=== PATIENT | female | born 1965 | race Caucasian/White ===

== ENCOUNTER 2017-01-06 11:47 | Emergency (ER) | payer OTHER ==
[~2017-01-06] VITALS: Ht 152.4 cm; Wt 66.5 kg
[~2017-01-06 11:47] MED LIST: GLIP5TAB13 PO; METF-382 PO; NAPR-260 PO
[2017-01-06 11:52] VITALS: Ht 152.4 cm; Wt 66.5 kg
[2017-01-06 13:34] LABS: URINE BLOOD (Dip) POC 2+ (NEGATIVE)
[2017-01-06] MEDS ORDERED: CEPH-443 PO (14:35)
[2017-01-06] MEDS ORDERED: ACET325T33 PO (14:35)
--- NOTE | 2017-01-06 14:47 | ERD ---
ER Documentation Chief Complaint Date/Time DATE: 01/06/17 TIME: 14:43 Chief Complaint dysuria and suprapubic pain x 3 days HPI 51-year-old female with a past medical history of diabetes presents to the ED complaining of dysuria, suprapubic pain that started 3 days ago. Denies any abdominal pain, nausea, vomiting, chest pain, shortness of breath, wheezing, headache, weakness, numbness or tingling. Reports that she takes metformin for her diabetes. ROS All systems reviewed and are negative except as per history of present illness. Medications Home Meds Active Scripts Acetaminophen* (Tylenol*) 325 Mg Tablet, 1 TAB PO Q6 Y for PAIN AND OR ELEVATED TEMP, #20 TAB Prov:ANNA YATES PA-C 01/06/17 Cephalexin* (Keflex*) 500 Mg Capsule, 500 MG PO QID for 7 Days, CAP Prov:ANNA YATES PA-C 01/06/17 Naproxen* (Naprosyn*) 500 Mg Tablet, 500 MG PO BID Y for PAIN AND/OR INFLAMMATION, #30 TAB Prov:JOSE MANUEL BOWERS 04/02/16 Reported Medications Glipizide* (Glipizide*) Unknown Strength Tablet, MG PO AC BREAKFAST, TAB 04/02/16 Metformin Hcl* (Metformin Hcl*) 500 Mg Tablet, 500 MG PO WITH BREAKFAST DINNE, # 30 TAB 04/02/16 Allergies Allergies: Coded Allergies: No Known Allergy (Unverified , 01/06/17) PMhx/Soc Medical and Surgical Hx: pt denies Surgical Hx History of Surgery: No Anesthesia Reaction: No Hx Neurological Disorder: No Hx Respiratory Disorders: No Hx Psychiatric Problems: No Hx Miscellaneous Medical Probl: Yes (DM) Hx Alcohol Use: No Hx Substance Use: No Hx Tobacco Use: No Smoking Status: Never smoker Physical Exam Vitals Vital Signs Date Time Temp Pulse Resp B/P Pulse Ox O2 Delivery O2 Flow Rate FiO2 01/06/17 11:52 99.1 90 18 138/82 96 Physical Exam Const: [id number], well-nourished. In no acute distress. Head: Atraumatic, normocephalic Eyes: Normal Conjunctiva without injection. No purulent discharge. ENT: Normal external ear, nose. Moist oropharynx without tonsillar exudates. Non -erythematous pharynx. Uvula midline. No drooling. No trismus. Neck: No cervical midline tenderness. Full range of motion. No meningismus. No cervical lymphadenopathy. No JVD. Resp: Clear to auscultation bilaterally. No wheezing, rhonchi, rales, or crackles. No accessory muscle use. No retractions. Cardio: Regular rate and rhythm. No murmurs, rubs or gallops. Abd: Soft, nontender, non distended. Normal bowel sounds. No palpable masses. No rebound tenderness. No guarding. Negative McBurney's point. Negative psoas sign. Negative obturator sign. Skin: No petechiae or rashes Back: No midline tenderness. No CVA tenderness. Ext: No cyanosis, or edema. Neur: Awake and alert. Normal gait. Normal coordination. Psych: Normal Mood and Affect Results 24 hrs Laboratory Tests Test 01/06/17 13:33 Bedside Urine Blood 2+ Bedside Urine Glucose (UA) 0.50% Bedside Urine Ketones (LAB) Negative Bedside Urine Leukocyte Esterase (L 3+ Bedside Urine Nitrite (LAB) Negative Bedside Urine Protein (LAB) 2+ Bedside Urine pH (LAB) 7.5 Procedures/MDM This is a 51-year-old female with a past medical history of dysuria,, suprapubic pain that started 3 days ago. Patient is afebrile and nontoxic- appearing. Patient has normal vital signs. Urine dip showed 3+ leukocyte esterase, 0.5% glucose, 2+ hematuria. Patient likely has a urinary tract infection. There is no ketones noted. There is low suspicion for DKA, HHS, acute abdomen, acute myocardial infarction, pneumothorax, pneumonia, cardiac tamponade, pulmonary embolism, pleural effusion, AAA, aortic dissection, Boerhaave's syndrome, cardiac dysrhythmias,meningitis, intracranial bleed, seizure, stroke, TIA or other emergent conditions. Gastritis, GERD, peptic ulcer disease, cholecystitis, choledocholithiasis, cholangitis, pancreatitis, appendicitis, bowel obstruction, ileus, volvulus, nephrolithiasis, pyelonephritis, hepatitis, perforated viscus, diverticulitis, abdominal hernia, acute abdomen, mesenteric ischemia or other emergent conditions. 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 Instructed patient to return to the ED sooner for any worsening symptoms. Patient's questions were answered. Patient understood and agreed with discharge plan. Patient discharged stable. Departure Diagnosis: Primary Impression: Dysuria Condition: Stable Patient Instructions: Dysuria, Urinary Tract Infections in Women Referrals: JULIA MAYS (PCP) [facility] YOU HAVE RECEIVED A MEDICAL SCREENING EXAM AND THE RESULTS INDICATE THAT YOU DO NOT HAVE A CONDITION THAT REQUIRES URGENT TREATMENT IN THE EMERGENCY DEPARTMENT. FURTHER EVALUATION AND TREATMENT OF YOUR CONDITION CAN WAIT UNTIL YOU ARE SEEN IN YOUR DOCTORS OFFICE WITHIN THE NEXT 1-2 DAYS. IT IS YOUR RESPONSIBILITY TO MAKE AN APPOINTMENT FOR FOLOW-UP CARE. IF YOU HAVE A PRIMARY DOCTOR --you should call your primary doctor and schedule an appointment IF YOU DO NOT HAVE A PRIMARY DOCTOR YOU CAN CALL OUR PHYSICIAN REFERRAL HOTLINE AT IF YOU CAN NOT AFFORD TO SEE A PHYSICIAN YOU CAN CHOSE FROM THE FOLLOWING [facility] [address] [facility] [address] [facility] [address] [facility] [address] [facility] [address] [facility] [facility]. [address] [facility] [facility] YOU HAVE RECEIVED A MEDICAL SCREENING EXAM AND THE RESULTS INDICATE THAT YOU DO NOT HAVE A CONDITION THAT REQUIRES URGENT TREATMENT IN THE EMERGENCY DEPARTMENT. FURTHER EVALUATION AND TREATMENT OF YOUR CONDITION CAN WAIT UNTIL YOU ARE SEEN IN YOUR DOCTORS OFFICE WITHIN THE NEXT 1-2 DAYS. IT IS YOUR RESPONSIBILITY TO MAKE AN APPOINTMENT FOR FOLOW-UP CARE. IF YOU HAVE A PRIMARY DOCTOR --you should call your primary doctor and schedule and appointment IF YOU DO NOT HAVE A PRIMARY DOCTOR YOU CAN CALL OUR PHYSICIAN REFERRAL HOTLINE AT . IF YOU CAN NOT AFFORD TO SEE A PHYSICIAN YOU CAN CHOSE FROM THE FOLLOWING [facility] INSTITUTIONS: [facility] [address] [place] [address] [facility] [address] [place] [address] [facility] [address] [place] [address] [facility] URGENT CARE/SPECIALTIES Additional Instructions: Visite a valadez patricia dumont para un EXAMEN.Regrese a estas instalaciones si no se mejora ebenezer esperbamos o ebenezer le dijimos. ANNA YATES PA-C Jan 06, 2017 14:46
== END 2017-01-06 14:57 | disposition home or self-care (01) ==
LOC: FTE 11:47
DX: R30.0 Dysuria (principal); E11.9 Type 2 diabetes mellitus without complications; I10 Essential (primary) hypertension; Z79.84 Long term (current) use of oral hypoglycemic drugs
CPT/HCPCS: 81003; 99283

== ENCOUNTER 2017-06-26 19:19 | Emergency (ER) | payer OTHER ==
[~2017-06-26] VITALS: Ht 162.6 cm; Wt 69.0 kg
[~2017-06-26 19:19] MED LIST changes: +ACET325T33 PO; +CEPH-443 PO; -METF-382 PO; +METF500T4 PO
[2017-06-26 19:33] VITALS: Ht 162.6 cm; Wt 69.0 kg
[2017-06-26] MEDS ORDERED: HYDR26CR PR (22:20)
[2017-06-26] MEDS ORDERED: HDRP454O TOP (22:20)
[2017-06-26] MEDS ORDERED: NAPR-260 PO (22:20)
[2017-06-26 22:35] VITALS: BP 112/77; PULSE 81; RESP 16; TEMP 98.3
--- NOTE | 2017-06-27 00:02 | ERD ---
ER Documentation Chief Complaint Date/Time DATE: 06/26/17 TIME: 23:53 Chief Complaint rectal pain w/ redness HPI 51-year-old female coming in complaining of rectal pain 2 months. Patient denies fever. Denies blood in her stool. Has not used medications on the site. States that the site feels itchy and painful. Denies any fevers. Denies purulence. Denies abdominal pain. Denies changes in urination or bowel movements. ROS All systems reviewed and are negative except as per history of present illness. Medications Home Meds Active Scripts Hydrophilic Base* (Aquaphor*) 454 Gm-Topical Oint, 1 APPLIC TOP BID, #1 JAR Prov:DARIO HUERTA PA-C 06/26/17 Hydrocortisone* Rectal (Preparation H* Cream) 1% - 26 Gm Cream.gm., 1 APPLIC IL BID, #1 TUB Prov:DARIO HUERTA PA-C 06/26/17 Naproxen* (Naprosyn*) 500 Mg Tablet, 500 MG PO BID Y for PAIN AND/OR INFLAMMATION, #30 TAB Prov:DARIO HUERTA PA-C 06/26/17 Acetaminophen* (Tylenol*) 325 Mg Tablet, 1 TAB PO Q6 Y for PAIN AND OR ELEVATED TEMP, #20 TAB Prov:ANNA YATES PA-C 01/06/17 Cephalexin* (Keflex*) 500 Mg Capsule, 500 MG PO QID for 7 Days, CAP Prov:ANNA YATES PA-C 01/06/17 Naproxen* (Naprosyn*) 500 Mg Tablet, 500 MG PO BID Y for PAIN AND/OR INFLAMMATION, #30 TAB Prov:JOSE MANUEL BOWERS 04/02/16 Reported Medications Glipizide* (Glipizide*) Unknown Strength Tablet, MG PO AC BREAKFAST, TAB 04/02/16 Metformin Hcl* (Metformin Hcl*) 500 Mg Tablet, 500 MG PO WITH BREAKFAST DINNE, # 30 TAB 04/02/16 Allergies Allergies: Coded Allergies: No Known Allergy (Unverified , 01/06/17) PMhx/Soc History of Surgery: No Anesthesia Reaction: No Hx Neurological Disorder: No Hx Respiratory Disorders: No Hx Psychiatric Problems: No Hx Miscellaneous Medical Probl: Yes (DM) Hx Alcohol Use: No Hx Substance Use: No Hx Tobacco Use: No Smoking Status: Never smoker Physical Exam Vitals Vital Signs Date Time Temp Pulse Resp B/P Pulse Ox O2 Delivery O2 Flow Rate FiO2 06/26/17 22:35 98.3 81 16 112/77 Room Air 06/26/17 19:33 98.9 75 20 141/75 98 Physical Exam GENERAL: The patient is well-appearing, well-nourished, in no acute distress CHEST: Clear to auscultation bilaterally. There are no rales, wheezes or rhonchi. HEART: Regular rate and rhythm. No murmurs, clicks, rubs or gallops. No S3 or S4. ABDOMEN:Soft, nontender and nondistended. Good bowel sounds. No rebound or guarding. No gross peritonitis. No gross organomegaly or masses. No Miller sign or McBurney point tenderness. BACK: No midline or flank tenderness. SKIN: There is no apparent rash or petechiae. The skin is warm and dry. RECTUM: Hemorrhoids skin tags. No thrombosed hemorrhoids seen. No surrounding erythema. No fluctuance to palpation. No erythema or induration. Procedures/MDM MDM: 51-year-old female coming in complaining of rectal pain. I have low suspicion for perirectal or rectal abscess. Patient's vital signs are stable and patient's exam is not concerning. I have low suspicion for thrombosed hemorrhoid. I have low suspicion for fungal infection. Patient will be given medication recommended to follow-up with primary care within 1-2 days for close evaluation. Patient understood and complied with plan. Departure Diagnosis: Primary Impression: Hemorrhoid Condition: Stable Patient Instructions: Hemorrhoids Additional Instructions: FOLLOW UP WITH YOUR PRIMARY CARE PHYSICIAN TOMORROW.Return to this facility if you are not improving as expected. DARIO HUERTA PA-C Jun 27, 2017 00:02
== END 2017-06-26 22:40 | disposition home or self-care (01) ==
LOC: FTE 19:19
DX: K64.4 Residual hemorrhoidal skin tags (principal); E11.9 Type 2 diabetes mellitus without complications; Z79.84 Long term (current) use of oral hypoglycemic drugs
CPT/HCPCS: 99284

== ENCOUNTER 2017-08-17 17:38 | Emergency (ER) | payer SELFPAY ==
[~2017-08-17 17:38] MED LIST changes: +HDRP454O TOP; +HYDR26CR PR
== END 2017-08-17 17:40 | disposition left against medical advice (07) ==
LOC: E/R 17:38
DX: Z53.21 Procedure and treatment not carried out due to patient leaving prior to being seen by health care provider (principal)

== ENCOUNTER 2019-06-01 09:20 | Emergency (ER) | payer OTHER ==
[~2019-06-01] VITALS: Wt 70.0 kg
[~2019-06-01 09:20] MED LIST changes: +IBUP-1542 PO; +METF500T24 PO; -METF500T4 PO; -NAPR-260 PO; +NAPR-985 PO; +NITR-58 PO; +TETR15DR12 OP
[2019-06-01 09:22] VITALS: BP 139/78; PULSE 79; RESP 18
[2019-06-01] MEDS ORDERED: TETRACAINE 0.5% 4 ML OPH RIGHT EYE ONE (10:00)
[2019-06-01] MEDS ORDERED: FLUORESCEIN STRIP RIGHT EYE ONE (10:00)
--- NOTE | 2019-06-01 10:05 | ERD ---
ER Documentation Chief Complaint Chief Complaint right eye pain/redness HPI This is a 53-year-old female patient presents emergency room with complaint of redness to right eye. 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 She is concerned that it is not improving. Denies pain, denies visual disturbance, no other symptoms such as fever, cough, URI symptoms. +dysuria. Patient presents with eyeglasses and states she has good eye care follow-up. History significant for cataracts, diabetes, hypertension. ROS All systems reviewed and are negative except as per history of present illness. Medications Home Meds Active Scripts Tetrahydrozoline Hcl/Peg's (Eye Moisturizing Relief Drp) 15 Ml Drops, 15 ML OP TID for 7 Days, #1 BOTTLE Prov:ABDIAS LOJA NP 06/01/19 Ibuprofen* (Motrin*) 600 Mg Tab, 600 MG PO Q6, #30 TAB Prov:ABDIAS LOJA NP 06/01/19 Nitrofurantoin Monohyd Macrocr* (Macrobid*) 100 Mg Capsr, 100 MG PO BID for 5 Days, #10 CAP Prov:ABDIAS LOJA NP 06/01/19 Hydrophilic Base* (Aquaphor*) 454 Gm-Topical Oint, 1 APPLIC TOP BID, #1 JAR Prov:DARIO HUERTA PA-C 06/26/17 Hydrocortisone* Rectal (Preparation H* Cream) 1% - 26 Gm Cream.gm., 1 APPLIC VT BID, #1 TUB Prov:DARIO HUERTA PA-C 06/26/17 Naproxen* (Naprosyn*) 500 Mg Tablet, 500 MG PO BID PRN for PAIN AND/OR INFLAMMATION, #30 TAB Prov:DARIO HUERTA PA-C 06/26/17 Acetaminophen* (Tylenol*) 325 Mg Tablet, 1 TAB PO Q6 PRN for PAIN AND OR ELEVATED TEMP, #20 TAB Prov:ANNA YATES PA-C 01/06/17 Cephalexin* (Keflex*) 500 Mg Capsule, 500 MG PO QID for 7 Days, CAP Prov:ANNA YATES PA-C 01/06/17 Naproxen* (Naprosyn*) 500 Mg Tablet, 500 MG PO BID PRN for PAIN AND/OR INFLAMMATION, #30 TAB Prov:JOSE MANUEL BOWERS MD 04/02/16 Reported Medications Glipizide* (Glipizide*) Unknown Strength Tablet, MG PO AC BREAKFAST, TAB 04/02/16 Metformin Hcl* (Metformin Hcl*) 500 Mg Tablet, 500 MG PO WITH BREAKFAST DINNE, #30 TAB 04/02/16 Allergies Allergies: Coded Allergies: No Known Allergy (Unverified , 06/01/19) PMhx/Soc Medical and Surgical Hx: pt denies Surgical Hx History of Surgery: No Anesthesia Reaction: No Hx Neurological Disorder: No Hx Respiratory Disorders: No Hx Psychiatric Problems: No Hx Miscellaneous Medical Probl: Yes (DM) Hx Alcohol Use: No Hx Substance Use: No Hx Tobacco Use: No Smoking Status: Never smoker Physical Exam Vitals Vital Signs Date Temp Pulse Resp B/P (MAP) Pulse Ox O2 O2 Flow FiO2 Time Delivery Rate 06/01/19 97.8 79 18 139/78 99 09:22 (98) Physical Exam Const: No acute distress Head: Atraumatic Eyes: Normal Conjunctiva, anterior chamber clear, PERRL, EOMI. +SUP/INF scant blood in conjunctiva surrounding iris. Periorbital skin without swelling or erythema. No ptosis, sensation intact to face bilaterally. ENT: Normal External Ears, Nose and Mouth. Neck: Full range of motion. No meningismus. Resp: Clear to auscultation bilaterally Cardio: Regular rate and rhythm, no murmurs Neur: Awake and alert, CN II-XII intact, clear speech, steady gait Psych: Normal Mood and Affect Results 24 hrs Laboratory Tests Test 06/01/19 10:59 Bedside Urine pH (LAB) 7.0 Bedside Urine Protein (LAB) Negative Bedside Urine Glucose (UA) Negative Bedside Urine Ketones (LAB) Negative Bedside Urine Blood Trace-intact Bedside Urine Nitrite (LAB) Negative Bedside Urine Leukocyte Esterase (L 2+ Current Medications Medications Dose Sig/Calixto Start Time Status Last (Trade) Ordered Route PRN Stop Time Admin Dose Reason Admin Tetracaine 1 drop ONCE ONCE 06/01/19 DC HCl RIGHT EYE 10:00 06/01/19 (Tetracaine 10:02 0.5% Steri-Unit Johana) Fluorescein 1 strip ONCE ONCE 06/01/19 DC Sodium RIGHT EYE 10:00 06/01/19 ([id number]-[id number] 10:02 p) Procedures/MDM PROCEDURES/MDM PROCEDURES: VA: OD 20/70, OS 20/100, OU 20/40 Tonometry: OD 19 OS 21 Fluorescein stain negative for corneal injury or infection External: lids without swelling or erythema, lashes without crusting, symmetry +EOMI Pupils: PERRL Cornea and anterior chamber clear, no FB LAB INTERPRETATION: UA: trace leuks, trace blood MDM: Patient's symptoms appear to be localized to the conjunctiva most likey due to contusion from rubbing eye with irritation for occular allergies. Without trauma, pain, or periorbital cellulitis, imaging not indicated. Low suspicion for periorbital cellulitis, iritis, keratitis, acute retinal detachment, corneal laceration, foreign body, vitreous detachment, intraocular hemorrhage, lens detachment, acute narrow-angle glaucoma. Patient has been discharged with ocular eye lubricant and instructions on following up with her eye care sp ecialist in the next 1 to 2 days for reevaluation. Patient has been instructed on red flag signs and symptoms and when to return to the emergency room for emergent evaluation. There is low suspicion for pyelonephritis, vaginitis, STI, or interstitial cyst itis due to absence of clinical findings that would support a diagnosis more serious than uncomplicated UTI. These diagnoses have been considered and excluded clinically. Nonetheless, it is understood by both the patient and provider that no clinical or diagnostic assessment can entirely exclude such diseases. Antibiotic treatment has been initiated today with instructions to increase hydration and red flag signs and symptoms to return for emergent evaluation. DISPOSITION and PLAN: RX: hydrating eye drops, ibuprofen, macrobid The patient has been discharge home to follow-up with community physician. Departure Diagnosis: Primary Impression: Cystitis Additional Impression: Subconjunctival hemorrhage of right eye Condition: Stable ABDIAS LOJA NP Jun 01, 2019 10:05
== END 2019-06-01 11:37 | disposition home or self-care (01) ==
LOC: FTE 09:20
DX: H11.31 Conjunctival hemorrhage, right eye (principal); E11.9 Type 2 diabetes mellitus without complications; N30.90 Cystitis, unspecified without hematuria; I10 Essential (primary) hypertension; Z79.84 Long term (current) use of oral hypoglycemic drugs
CPT/HCPCS: 81003; Z7502; Z7610; 99283